=== PATIENT | male | born 1955 | race Two or more races ===

== ENCOUNTER → 2016-12-29 | Outpatient (CLI) | payer MEDICARE, BC ==
[~2016-12-29] VITALS: Ht 175.3 cm; Wt 99.3 kg
[~2016-12-29] MED LIST: ASPIRIN EC81 MG ORAL; GABAPENTIN600 MG ORAL; IMODIUM MULTI-1 EACH PO; LIPITOR20 MG ORAL; VITAMIN B COMP1 EAC2 ORAL; VITAMIN D1000 UNI1 ORAL; [UNRECOGNIZED DRUG - REMARK]
[2016-12-29 15:05] VITALS: BP 126/74
--- NOTE | 2016-12-29 16:17 | GI Initial Consult Note ---
History of Present Illness General Date patient seen: Dec 29, 2016 Time patient seen: 15:00 Referring physician: ELOINA Reason for Consultation: EGD/COLONOSCOPY Present Illness HPI 61 year old male referred to [facility] by Dr. Santos presents today with c/o of GERD , diarrhea, minimal rectal bleed, and increase BM urgency. Denies any abdominal pain at this time. The patient states he receives chemo for his CA every other week. Also here to schedule EGD/colonoscopy screening. Allergies: Coded Allergies: No Known Allergies (Unverified , 12/29/16) Patient History History Provided By: Patient PMH Narrative blood CA with chemo qod - dx 2013 fatty liver PSHx back surgery L6-7 cholecystectomy Family History Narrative [place] CVA Social History: Denies: alcohol use, drug use, other, smoking Review of Systems All Other Systems: negative except mentioned in HPI Physical Exam Vital Signs Date Time Temp Pulse Resp B/P Pulse Ox O2 Delivery O2 Flow Rate FiO2 12/29/16 15:05 98.9 85 16 126/74 98 Sp02 EP Interpretation: reviewed General Appearance: well appearing, no apparent distress, alert EENT: normal ENT inspection Neck: supple Respiratory: normal breath sounds, no respiratory distress Cardiovascular: normal rate Gastrointestinal: normal inspection, non tender, soft, normal bowel sounds, non -distended Rectal: deferred Genitourinary: no CVA tenderness Musculoskeletal: back normal Neurologic: normal inspection, alert, oriented x3, responsive Psychiatric: normal inspection, judgement/insight normal, memory normal Skin: normal inspection, normal color, no rash, warm/dry Lymphatic: normal inspection, no adenopathy GI: Plan Problems: (1) Colonoscopy planned (2) Fatty liver (3) GERD (gastroesophageal reflux disease) (4) Rectal bleed (5) Urgency incontinence (6) Diarrhea Plan blood CA >> chemo QOW EGD/colonoscopy scheduled 01/19/16 - CLD & Trilyte prep instructions given and acknowledged cholestyramine BID for diarrhea Natalee Connell N.P. Dec 29, 2016 16:17
== END | disposition home or self-care (01) ==
LOC: PAN 14:39
DX: K21.9 Gastro-esophageal reflux disease without esophagitis (principal); K62.5 Hemorrhage of anus and rectum; N39.41 Urge incontinence; R19.7 Diarrhea, unspecified; K76.0 Fatty (change of) liver, not elsewhere classified
CPT/HCPCS: 99201

== ENCOUNTER → 2017-04-20 | Outpatient (CLI) | payer MEDICARE, BC ==
[~2017-04-20] MED LIST changes: +QUESTRAN POWDER4 GM ORAL
--- NOTE | 2017-04-20 15:32 | GI Progress Note ---
Assessment/Plan Problems: (1) Diarrhea ICD Codes: R19.7 - Diarrhea, unspecified SNOMED: 90838484 (2) Rectal bleed ICD Codes: K62.5 - Hemorrhage of anus and rectum SNOMED: 56156069 (3) Urgency incontinence ICD Codes: N39.41 - Urge incontinence SNOMED: 98101155 (4) GERD (gastroesophageal reflux disease) ICD Codes: K21.9 - Gastro-esophageal reflux disease without esophagitis SNOMED: 412100231 (5) Fatty liver ICD Codes: K76.0 - Fatty (change of) liver, not elsewhere classified SNOMED: 428636758 Status: stable Status Narrative Seen with Dr. Griffin. Assessment/Plan blood CA >> chemo QOW cont cholestyramine BID for diarrhea rx Anusol prn dc dexilant RTC prn Subjective Subjective GERD >> rx dexilant with relief. Hasn't taken in a month and feels okay. Diarrhea >> s/p cholecystectomy >> multiple BM urges instantly after PO intake rectal bleeding with pain >> at times has been taking cholestyramine not consistently s/p EGD/colon 01/28/17 Objective T 97.7 BP 105/77 P 102 98 RA General Appearance: no apparent distress, alert Cardiovascular: normal rate Respiratory/Chest: normal breath sounds, no respiratory distress Abdominal Exam: normal bowel sounds, non tender, soft Extremities: normal range of motion Natalee Connell N.P. Apr 20, 2017 15:32
== END | disposition home or self-care (01) ==
LOC: PAN 14:48
DX: R19.7 Diarrhea, unspecified (principal); K62.5 Hemorrhage of anus and rectum; N39.41 Urge incontinence; K21.9 Gastro-esophageal reflux disease without esophagitis; K76.0 Fatty (change of) liver, not elsewhere classified
CPT/HCPCS: 99211

== ENCOUNTER 2019-01-07 14:19 | Outpatient (CLI) | payer MEDICARE, BC, MEDICAID ==
[~2019-01-07] VITALS: Ht 175.3 cm; Wt 95.7 kg
--- NOTE | 2019-01-07 16:04 | General Progress Note ---
Assessment/Plan Problem List: (1) Fatty liver ICD Codes: K76.0 - Fatty (change of) liver, not elsewhere classified SNOMED: 652453897 (2) Diarrhea ICD Codes: R19.7 - Diarrhea, unspecified SNOMED: 14521629 (3) GERD (gastroesophageal reflux disease) ICD Codes: K21.9 - Gastro-esophageal reflux disease without esophagitis SNOMED: 569798708 Assessment/Plan start cholestyramine 4 gm TID RTC in 2 weeks if no improvement obtain colonoscopy report from [facility] Subjective ROS Limited/Unobtainable: Yes Allergies: Coded Allergies: No Known Allergies (Unverified , 12/29/16) Objective General Appearance: alert EENT: normal ENT inspection Neck: supple Cardiovascular: normal rate Respiratory/Chest: lungs clear Abdomen: normal bowel sounds, non tender, soft Extremities: non-tender Steve Griffin MD Jan 07, 2019 16:04
[2019-01-08 08:14] VITALS: BP 124/74
[2019-01-08] MEDS ORDERED: ACYCLOVIR200 MG ORAL (08:19)
[2019-01-08] MEDS ORDERED: OPIUM10 MG/1 ML PO (08:19)
== END 2019-01-07 14:49 | disposition home or self-care (01) ==
LOC: PAN 14:19
DX: K76.0 Fatty (change of) liver, not elsewhere classified (principal); R19.7 Diarrhea, unspecified; K21.9 Gastro-esophageal reflux disease without esophagitis
CPT/HCPCS: 99212

== ENCOUNTER 2019-01-24 14:37 | Outpatient (CLI) | payer MEDICARE, BC, MEDICAID ==
[~2019-01-24 14:37] MED LIST changes: +ACYCLOVIR200 MG ORAL; +OPIUM10 MG/1 ML PO
--- NOTE | 2019-03-05 11:12 | General Progress Note ---
Assessment/Plan Problem List: (1) GERD (gastroesophageal reflux disease) ICD Codes: K21.9 - Gastro-esophageal reflux disease without esophagitis SNOMED: 933879677 (2) Diarrhea ICD Codes: R19.7 - Diarrhea, unspecified SNOMED: 79934425 (3) Fatty liver ICD Codes: K76.0 - Fatty (change of) liver, not elsewhere classified SNOMED: 800856947 (4) Rectal bleed ICD Codes: K62.5 - Hemorrhage of anus and rectum SNOMED: 99178501 (5) Urgency incontinence ICD Codes: N39.41 - Urge incontinence SNOMED: 25427631 (6) Colonoscopy planned SNOMED: 279167697 (7) Constipation ICD Codes: K59.00 - Constipation, unspecified SNOMED: 16794219 Plan: cont cholestyramine plan colonoscopy at [facility] Subjective ROS Limited/Unobtainable: Yes Allergies: Coded Allergies: No Known Allergies (Unverified , 12/29/16) Objective General Appearance: alert EENT: normal ENT inspection Neck: supple Cardiovascular: normal rate Respiratory/Chest: lungs clear Abdomen: normal bowel sounds, non tender, soft Extremities: non-tender Steve Griffin MD Mar 05, 2019 11:12
== END 2019-01-24 15:47 | disposition home or self-care (01) ==
LOC: PAN 14:37
DX: K21.9 Gastro-esophageal reflux disease without esophagitis (principal); R19.7 Diarrhea, unspecified; K76.0 Fatty (change of) liver, not elsewhere classified; K62.5 Hemorrhage of anus and rectum; N39.41 Urge incontinence; K59.00 Constipation, unspecified
CPT/HCPCS: G0463

== ENCOUNTER 2019-04-18 15:17 | Outpatient (CLI) | payer MEDICARE, BC, MEDICAID ==
[2019-04-18] MEDS ORDERED: LOMOTIL TABLET1 EACH ORAL (17:00)
[2019-04-18] MEDS ORDERED: IMODIUM A-1 MG/7.5 M PO (17:00)
[2019-04-18 17:01] VITALS: BP 133/83
--- NOTE | 2019-05-22 15:39 | General Progress Note ---
Assessment/Plan Problem List: (1) Fatty liver ICD Codes: K76.0 - Fatty (change of) liver, not elsewhere classified SNOMED: 019988941 (2) Diarrhea ICD Codes: R19.7 - Diarrhea, unspecified SNOMED: 00808713 (3) GERD (gastroesophageal reflux disease) ICD Codes: K21.9 - Gastro-esophageal reflux disease without esophagitis SNOMED: 229317948 (4) Rectal bleed ICD Codes: K62.5 - Hemorrhage of anus and rectum SNOMED: 19725951 Assessment/Plan: cont current meds recent colonoscopy and labs reviewed will fu PRN Subjective ROS Limited/Unobtainable: Yes Allergies: Coded Allergies: No Known Allergies (Unverified , 12/29/16) Objective General Appearance: alert EENT: normal ENT inspection Neck: supple Cardiovascular: normal rate Respiratory/Chest: decreased breath sounds Abdomen: normal bowel sounds, non tender, soft Extremities: non-tender Steve Griffin MD May 22, 2019 15:39
== END 2019-04-18 17:17 | disposition home or self-care (01) ==
LOC: PAN 15:17
DX: K76.0 Fatty (change of) liver, not elsewhere classified (principal); R19.7 Diarrhea, unspecified; K21.9 Gastro-esophageal reflux disease without esophagitis; K62.5 Hemorrhage of anus and rectum
CPT/HCPCS: 99212